=== PATIENT | male | born 1995 | race Caucasian/White ===

== ENCOUNTER 2019-09-15 20:36 | Emergency (ER) | payer BC, SELFPAY ==
--- NOTE | 2019-09-15 22:06 | RAD ---
LEFT TIBIA AND FIBULA 2 VIEWS: Date: 09/15/2019 HISTORY: Injury. COMPARISON: None. FINDINGS: The tibia and fibula are intact. Soft tissues are unremarkable. IMPRESSION: No acute osseous abnormality. POS: HOME
== END 2019-09-15 21:45 | disposition home or self-care (01) ==
LOC: ERS 20:36
DX: S80.12XA Contusion of left lower leg, initial encounter (principal); V86.59XA Driver of other special all-terrain or other off-road motor vehicle injured in nontraffic accident, initial encounter